=== PATIENT | male | born 1985 | race Caucasian/White ===

== ENCOUNTER 2016-07-15 19:23 | Emergency (ER) | payer BC ==
[2016-07-15 19:31] VITALS: BP 133/78
[2016-07-15] MEDS ORDERED: Lidocaine 1% 20 ML MDV INJECT ONE (19:36)
[2016-07-15] MEDS ORDERED: Diphtheria,Pertussis(Acell),Tetanus Vaccine 0.5 ML Syringe IM ONE (19:51)
[2016-07-15] MEDS ORDERED: Bacitracin/Neomycin/Polymyxin B Oint 0.9 GM U/D Packet TOP ONE (19:55)
--- NOTE | 2016-07-15 19:57 | EDM.PDOC ---
ED HPI Skin/Rash - General Chief Complaint: Laceration Stated Complaint: laceration to left thumb Time Seen by Provider: 07/15/16 19:40 Source: Reports: Patient History Limitations: Reports: No limitations - History of Present Illness INITIAL COMMENTS - FREE TEXT/NARRATIVE: Patient presents today with a laceration to his left thumb. States "a drill bit ran down my finger while using the drill." Does have good range of motion. Bleeding now contained. No other concerns. Tetanus not current Symptom Onset Date: 07/15/16 Timing: Reports: still present Location, Skin: Reports: upper extremity, left Quality: Reports: Throbbing Severity: mild Known Identified Source: yes When: prior to symptom onset Place of Occurrence: home Associated Symptoms: Reports: no other symptoms Treatments NURSE LIAISON: Reports: Dressing(s) - Related Data Allergies Allergy/AdvReac Type Severity Reaction Status Date / Time No Known Allergies Allergy Verified 07/15/16 19:25 Home Meds: Ambulatory Orders Medication Instructions Recorded Confirmed . [No Known Home Meds] 07/15/16 07/15/16 Past Medical History - Past Health History Medical/Surgical History: Denies Medical/Surgical History Social & Family History - Tobacco Use Smoking Status *Q: Never Smoker - Recreational Drug Use Recreational Drug Use: No ED ROS GENERAL - Review of Systems Review Of Systems: ROS reveals no pertinent complaints other than HPI. ED EXAM, SKIN/RASH Exam: See Below Exam Limited By: No limitations General Appearance: alert, WD/WN, no apparent distress Extremities: normal range of motion, normal capillary refill Skin: Wound/incision Location, Skin: upper extremity, left Characteristics: linear ED SKIN PROCEDURES - Laceration/Wound Repair Left Hand Lac/wound length in cm: 2 Appearance: superficial Distal NVT: neuro & vascular intact Anesthetic type: local Local anesthesia - Lidocaine (Xylocaine): 1% plain Local anesthetic volume: 2cc Skin prep: other (saf-clens) Exploration/Debridement/Repair: wound explored Closed with: sutures Suture size: 4-0 # of sutures: 33 Suture type: nylon, interrupted, simple Sterile dressing applied: nurse Tetanus status addressed: Yes Complications: No Course - Vital Signs Last Recorded V/S: Last Vital Signs Temp 98.4 F 07/15/16 19:25 Pulse 83 07/15/16 19:25 Resp 20 07/15/16 19:25 BP 133/78 07/15/16 19:25 Pulse Ox 96 07/15/16 19:25 - Orders/Labs/Meds Orders: Active Orders 24 hr Category Date Time Status Vaccines to be Administered [RC] PER UNIT ROUTINE Care 07/15/16 19:51 Active Meds: Medications Discontinued Medications Generic Name Dose Route Start Last Admin Trade Name Sarah PRN Reason Stop Dose Admin Diphtheria/Tetanus/Acell Pertussis 0.5 ml 07/15/16 19:51 Adacel IM 07/15/16 19:52 .ONCE ONE Lidocaine HCl 20 ml 07/15/16 19:36 07/15/16 19:40 Xylocaine 1% INJECT 07/15/16 19:37 20 ml ONETIME ONE Administration Neomycin/Polymyxin/Bacitracin 1 each 07/15/16 19:55 Triple Antibiotic Oint TOP 07/15/16 19:56 ONETIME ONE Departure - Departure Time of Disposition: 19:56 Disposition: Home, Self-Care 01 Condition: good Clinical Impression: Broken skin Referrals: PCP,Unobtain [Primary Care Provider] - Forms: ED Department Discharge Additional Instructions: 1. Keep wound clean and dry 2. Cover wound with triple antibiotic ointment daily 3. Keep covered while exposed to work 4. Wound care instructions 5. Sutures out in 10 days 6. Follow up if any ongoing concerns - My Orders Last 24 Hours: My Active Orders 07/15/16 19:51 Vaccines to be Administered [RC] PER UNIT ROUTINE - Assessment/Plan Last 24 Hours: My Active Orders 07/15/16 19:51 Vaccines to be Administered [RC] PER UNIT ROUTINE
== END 2016-07-15 20:07 | disposition home or self-care (01) ==
LOC: CC.ED 19:23
DX: S61.012A Laceration without foreign body of left thumb without damage to nail, initial encounter (principal); Z23 Encounter for immunization; W29.8XXA Contact with other powered hand tools and household machinery, initial encounter; Y92.009 Unspecified place in unspecified non-institutional (private) residence as the place of occurrence of the external cause
CPT/HCPCS: 12001; 90471; 90715; 99282